=== PATIENT | female | born 1960 | race Caucasian/White ===

== ENCOUNTER → 2019-08-16 14:57 | Outpatient (BNVA) | payer SELFPAY | PROVIDERS: Family Provider Nurse Practitioner; PCP Nurse Practitioner; Visit Provider Nurse Practitioner | DX: R10.10 Upper abdominal pain, unspecified (principal) | CPT/HCPCS: 74018 ==

== ENCOUNTER 2022-05-21 06:00 | Outpatient (RCR) | payer OTHER, SELFPAY | END 2022-06-12 23:59 | disposition home or self-care (01) | LOC: APT 06:00 | PROVIDERS: Visit Provider Orthopaedic Surgery | DX: M17.11 Unilateral primary osteoarthritis, right knee (principal) | CPT/HCPCS: 97110; 97112; 97116; 97162; 97530 ==

== ENCOUNTER 2022-06-13 06:00 | Outpatient (RCR) | payer OTHER, SELFPAY | END 2022-07-12 23:59 | disposition home or self-care (01) | LOC: APT 06:00 | PROVIDERS: Visit Provider Orthopaedic Surgery | DX: Z47.89 Encounter for other orthopedic aftercare (principal); M17.11 Unilateral primary osteoarthritis, right knee | CPT/HCPCS: 97110; 97112; 97116; 97530 ==

== ENCOUNTER 2022-10-02 09:35 | Outpatient (CLI) | payer OTHER, MEDICAID, SELFPAY ==
--- NOTE | 2022-10-02 09:44 | MM_ITS ---
WS: [id number] BILATERAL SCREENING DIGITAL TOMOSYNTHESIS MAMMOGRAM WITH CAD HISTORY: SCREENING COMPARISON: 08/28/2021, 06/17/2012 Bilateral CC and MLO views with tomosynthesis and synthetic mammography submitted. Computer aided det ection analyzed. Breast composition: There are scattered areas of fibroglandular density. No suspicious masses, microc alcifications or architectural distortion. Subtle asymmetry in the upper outer quadrant RIGHT breast is stable. MM/[place] [id number] IMPRESSION: BI-RADS: 2-Benign FOLLOW UP: 1 Year Follow-up
== END 2022-10-02 09:36 | disposition home or self-care (01) ==
LOC: RAD 09:42 → MOBLMAM 09:43
PROVIDERS: PCP Registered Nurse; Visit Provider Registered Nurse
DX: Z12.31 Encounter for screening mammogram for malignant neoplasm of breast (principal)
CPT/HCPCS: 77063; 77067

== ENCOUNTER 2022-11-25 06:00 | Outpatient (RCR) | payer OTHER, MEDICAID, SELFPAY | END 2022-12-12 23:59 | disposition home or self-care (01) | LOC: APT 06:00 | PROVIDERS: Visit Provider Orthopaedic Surgery | DX: Z47.1 Aftercare following joint replacement surgery (principal); Z96.652 Presence of left artificial knee joint | CPT/HCPCS: 97110; 97161; 97530 ==

== ENCOUNTER 2022-12-13 06:00 | Outpatient (RCR) | payer MEDICAID, SELFPAY | END 2023-01-12 23:59 | disposition home or self-care (01) | LOC: APT 06:00 | PROVIDERS: Visit Provider Orthopaedic Surgery | DX: Z47.1 Aftercare following joint replacement surgery (principal); Z96.652 Presence of left artificial knee joint | CPT/HCPCS: 97110; 97140; 97530 ==

== ENCOUNTER 2023-01-24 00:20 | Emergency (ER) | payer MEDICAID, SELFPAY ==
--- NOTE | 2023-01-24 00:24 | ECG_ITS ---
[facility] Test Date: 2023-01-24 Pat Name: Alina Graham Department: Room: Gender: Female Mold Checker: : 1960 Requested By: Nick Joaquin Order Number: [id number] Kate MD: Claire Martínez M.D. Measurements Intervals [place] Rate: 101 P: 53 IL: 128 QRS: 59 QRSD: 95 T: 35 QT: 367 QTc: 476 Interpretive Statements SINUS TACHYCARDIA POSSIBLE RIGHT VENTRICULAR CONDUCTION DELAY [RSR (QR) IN V1/V2] ABNORMAL RHYTHM ECG No previous ECG available for comparison Electronically Signed On 01-25-2023 9:43:56 RRT by Claire Martínez M.D. [email or web address] municipal hospitalSeed Labs, Inc./store/NU/[id number] f
--- NOTE | 2023-01-24 00:26 | ECG_ITS ---
[facility] Test Date: 2023-01-24 Pat Name: Alina Graham Department: Room: Gender: Female Digester: : 1960 Requested By: Nick Joaquin Order Number: [id number] Kate MD: Claire Martínez M.D. Measurements Intervals [place] Rate: 99 P: 50 FL: 136 QRS: 59 QRSD: 91 T: 36 QT: 372 QTc: 477 Interpretive Statements SINUS RHYTHM Compared to ECG 01/24/2023 00:24:10 Sinus tachycardia no longer present Electronically Signed On 01-25-2023 9:43:53 ASPHALT PAVER by Claire Martínez M.D. [id number] f
[2023-01-24 00:34] VITALS: BP 147/88; PULSE 103; RESP 18; TEMP 37.3; O2SAT 96
--- NOTE | 2023-01-24 00:35 | XRR_ITS ---
PROCEDURE INFORMATION: Exam: XR Chest Exam date and time: 01/24/2023 12:40 AM Age: 62 years old Clinical indication: Pain; Shortness of breath; Chest pressure; Patient HX: C/O cp with SOB. TECHNIQUE: Imaging protocol: Radiologic exam of the chest. Views: 1 view. COMPARISON: CR XR abdomen 1V* [id number] 08/16/2019 2:57 PM FINDINGS: Lungs: Unremarkable. No consolidation. Pleural spaces: Unremarkable. No pleural effusion. No pneumothorax. Heart/Mediastinum: Unremarkable. No cardiomegaly. Bones/joints: Moderate thoracic spondylosis. Soft tissues: Examination is limited secondary to body habitus. XR/XR chest 1V portable [id number] IMPRESSION: No acute findings.
[2023-01-24 00:48] VITALS: BP 141/94; PULSE 92; RESP 14; O2SAT 95
[2023-01-24 00:51] LABS: Basophils % 0.3 %; Eosinophils # 0.2 10^3/uL (0.0-0.8); Eosinophils % 1.9 %; Hematocrit 35.6 % (36-47); Lymphocytes # 2.4 10^3/uL (0.8-4.8); Lymphocytes % 26.5 %; Mean Corpuscular HGB Conc 32.3 g/dL (30-55); Mean Corpuscular Hemoglobin 29.5 pg (27-33); Mean Corpuscular Volume 91.3 fl (85-98); Mean Platelet Volume 10.6 fL (7.4-10.4); Monocytes # 0.6 10^3/uL (0.2-0.9); Monocytes % 6.9 %; Neutrophils # 5.69 10^3/uL (1.8-7.7); Neutrophils % 64.2 %; Nucleated Red Blood Cells % 0 %; Platelet Count 249 10^3/cmm (157-399); Red Cell Distribution Width 13.1 % (12.1-15.1); White Blood Count 8.87 10^3/uL (3.29-11.43)
[2023-01-24 01:04] LABS: INR 0.97 (0.8-1.2)
[2023-01-24 01:11] LABS: Troponin(5th) Baseline < 6 ng/L (0-10)
[2023-01-24 01:18] LABS: Alanine Aminotransferase 18 U/L (0-33); Alkaline Phosphatase 127 U/L (35-105); Anion Gap 16.8 (5-19); Aspartate Amino Transferase 14 U/L (0-32); Blood Urea Nitrogen 9 mg/dL (8-23); Calcium 9.3 mg/dL (8.5-10.5); Carbon Dioxide 25 mmol/L (22-29); Chloride 101 mmol/L (98-107); Globulin 2.3 g/dL (1.3-4.6); Glomerular Filtration Rate 84.5 mL/min (90-130); Glucose 174 mg/dL (65-115); NT Pro B Type Natriuretic Pept 59 pg/mL (0-125); Osmolality Calculated 291 mOsm/kg (285-295); Potassium 3.8 mmol/L (3.5-5.1); Sodium 139 mmol/L (136-145); Total Bilirubin 0.2 mg/dL (0.15-1.2); Total Protein 6.3 g/dL (6.6-8.7)
[2023-01-24 01:25] LABS: Partial Thromboplastin Time 17.7 SECONDS (23.9-36.7)
[2023-01-24 01:29] LABS: D Dimer 1.28 ug/mLFEU (0-0.59)
[2023-01-24 01:40] LABS: Thyroid Stimulating Hormone 1.87 uIU/mL (0.27-4.20)
--- NOTE | 2023-01-24 01:41 | CTR_ITS ---
PROCEDURE INFORMATION: Exam: CTA Chest With Contrast Exam date and time: 01/24/2023 2:18 AM Age: 62 years old Clinical indication: Pain and abnormal findings; Abnormal diagnostic tests; Elevated d-dimer; Shortness of breath; Chest pressure; Prior surgery; Surgery date: 6+ months; Surgery type: Gb; Patient HX: Cp with SOB and tachycardia. Dimer of 1.28. ; Additional info: Palpitations, SOB tachycardia TECHNIQUE: Imaging protocol: Computed tomographic angiography of the chest with contrast. Exam focused on the arteries. 3D rendering (Not supervised by radiologist): MIP and/or 3D reconstructed images were created by the technologist. Radiation optimization: All CT scans at this facility use at least one of these dose optimization techniques: automated exposure control; mA and/or kV adjustment per patient size (includes targeted exams where dose is matched to clinical indication); or iterative reconstruction. Contrast material: OMNI 350; Contrast volume: 133 ml; Contrast route: INTRAVENOUS (IV); REPORTING DATA: Count of CT and Cardiac NM exams in prior 12 months: This patient has received 0 known CTs and 0 known cardiac nuclear medicine studies in the 12 months prior to the current study. COMPARISON: CR (CHEST, ) 01/24/2023 12:40 AM RADIATION DOSE METRICS: Total DLP (mGy-cm): 946.24 FINDINGS: Pulmonary arteries: No central or segmental pulmonary emboli. Evaluation of the more distal vessels is limited by motion artifact. Aorta: No aortic dissection allowing for pulsation artifact at the aortic root. No aortic aneurysm. Lungs: There are patchy ground-glass opacities noted in the lower lobes. Findings may be seen with mild pulmonary edema or atelectasis/air trapping. Patchy bibasilar atelectatic changes. Pleural spaces: Unremarkable. No pneumothorax. No pleural effusion. Heart: No pericardial effusion. Lymph nodes: Multiple prominent mediastinal lymph nodes measuring up to 12 mm in short axis dimension. There are calcified hilar lymph nodes. Liver: Fatty liver. Gallbladder and bile ducts: Status post cholecystectomy. Adrenal glands: Nonspecific ill-defined left adrenal gland thickening. Bones/joints: Unremarkable. No acute fracture. Soft tissues: Unremarkable. CT/CT angio chest PE protcl [id number] IMPRESSION: 1. No central or segmental pulmonary emboli. Evaluation of the more distal vessels is limited by motion artifact. 2. Multiple prominent mediastinal lymph nodes measuring up to 12 mm in short axis dimension. 3. There are patchy ground-glass opacities noted in the lower lobes. Findings may be seen with mild pulmonary edema or atelectasis/air trapping.
[2023-01-24] MEDS: metoprolol tartrate 1 mg/1 mL SDV 5 mL 2.5 MG IVP (02:01)
[2023-01-24 02:06] VITALS: BP 137/92; PULSE 89; RESP 19; O2SAT 98
[2023-01-24] MEDS: iohexol 350 mg/mL 500 mL Btl (per mL) IV (02:31)
[2023-01-24 02:36] LABS: SARS Covid-2 Antigen negative (Negative)
[2023-01-24 02:50] LABS: Troponin 5 2HR Delta 0.00001 ABS# (0-10)
[2023-01-24 03:10] VITALS: BP 117/64; PULSE 87; RESP 18; O2SAT 98
--- NOTE | 2023-01-24 03:15 | ED_ITS ---
HPI - Arrhythmia/Palpitations General: Chief Complaint: Arrhythmia/Palpitations Stated Complaint: CHEST PAIN Time Seen by Provider: 01/24/23 00:28 Source: patient History of Present Illness: 62-year-old female with no prior history of coronary disease. She notes that she began to get discomfort between her shoulder blades, and a feeling of heart racing while driving home from [place] from a baby shower. She says the feeling is improved now, but is still present. She was not sick prior to this. No cough, no fever, no significant GI symptoms, some mild shortness of breath. MD complaint: rapid heart beat Associated symptoms: Deny nausea Review of Systems Const: Denies: fever(s) Eyes: Denies: change in vision ENMT: Denies: throat pain Card: Reports: chest pain (Discomfort) and palpitations; Denies: irregular heart rhythm Resp: Reports: dyspnea; Denies: productive cough or non-productive cough GI: Denies: nausea Neuro: Denies: headache(s) PFSH ED PFSH: Medical History Neuropathic arthritis Right knee Palpitations Type 2 diabetes mellitus with hyperglycemia Surgical History History of cholecystectomy History of hernia repair History of hysterectomy Family History Other Cancer Chronic kidney disease (CKD) Social History Smoking and tobacco/nicotine status: former use of tobacco/nicotine Second hand smoke exposure: No Alcohol intake: never Substance/Drug Use: never Caregiver/support person: No Lives independently: Yes Household members: spouse Housing: House Marital status: Number of children: 3 Do you think of yourself as: Straight/Heterosexual Current gender identity: Female Physical Exam Const: COMMON NORMALS: no acute distress GENERAL APPEARANCE: cooperative; not ill appearing and not frail appearing HENMT: COMMON NORMALS: normocephalic, atraumatic and Normal external nose present HEAD & SCALP: normocephalic and atraumatic FACE & SINUS: normal facial exam and face symmetric NOSE: Normal external nose present Eye: COMMON NORMALS: Equal, round and reactive pupils present and EOMs intact bilaterally PUPIL: Yes Equal, round and reactive pupils present Neck/C-Spine: GENERAL: Yes trachea midline Chest: CHEST: Yes Symmetrical chest wall rise Resp: COMMON NORMALS: normal respiratory effort, No retractions, No use of accessory muscles and clear to auscultation bilaterally AUSCULTATION: clear to auscultation bilaterally Cardio: COMMON NORMALS: regular rate and regular rhythm RATE: regular rate RHYTHM: regular rhythm GI: COMMON NORMALS: Normal to inspection, nondistended, normoactive bowel sounds present Extremity: COMMON NORMALS: no pedal edema Neuro: PRINCE COMA SCALE: document GCS findings [place] coma scale eye opening: Spontaneous Prince coma scale verbal response: Orientated Prince coma scale motor response: Obey commands Prince coma scale total score: 15 SENS ORY EXAM: Yes extremities (intact) Psych: COMMON NORMALS: speech normal SPEECH: Yes normal speech Skin: COMMON NORMALS: no rashes or lesions noted GENERAL SKIN EXAM: no rashes or lesions noted Course Vital Signs: Vital signs: Vital Signs Temperature 99.2 F 01/24/23 00:34 Pulse Rate 87 01/24/23 03:10 Respiratory Rate 18 01/24/23 03:10 Blood Pressure 117/64 01/24/23 03:10 Pulse Oximetry 98 01/24/23 03:10 Oxygen Delivery Me thod Room Air 01/24/23 03:10 MDM - Arrhythmia/Palpitations Medical Decision Making Patient was initially tachycardic. Improved after IV metoprolol. Currently heart rate is 84, blood pressure 110/79. Saturations are normal. First and second troponin are normal. EKG shows a normal sinus rhythm with a rate of 100 or just below with normal intervals and ST waves. There is an S in lead I and Q in lead III. Because of the tachycardia, D-dimer was ordered and is positive. CTA is finished and read is pending. CTA shows no central PE. There are some groundglass infiltrates in the bottom of both lower lobes. Her antigen COVID test is negative. We will swab her for PCR respiratory panel. She will be allowed home. To return for any worsening symptoms. Lab Data 01/24/23 00:44 01/24/23 00:44 Radiology Impressions Chest X-Ray 01/24/23 00:35 IMPRESSION: No acute findings. Chest CTA 01/24/23 01:41 IMPRESSION: 1. No central or segmental pulmonary emboli. Evaluation of the more distal vessels is limited by motion artifact. 2. Multiple prominent mediastinal lymph nodes measuring up to 12 mm in short axis dimension. 3. There are patchy ground-glass opacities noted in the lower lobes. Findings may be seen with mild pulmonary edema or atelectasis/air trapping. Laboratory Results WBC 8.87 10^3/uL (3.29-11.43) 01/24/23 00:44 RBC 3.90 10^6/uL (3.85-5.65) 01/24/23 00:44 Hgb 11.50 g/dL (11.27-16.99) 01/24/23 00:44 Hct 35.6 % (36-47) L 01/24/23 00:44 MCV 91.3 fl (85-98) 01/24/23 00:44 MCH 29.5 pg (27-33) 01/24/23 00:44 MCHC 32.3 g/dL (30-55) 01/24/23 00:44 RDW 13.1 % (12.1-15.1) 01/24/23 00:44 Plt Count 249 10^3/cmm (157-399) 01/24/23 00:44 MPV 10.6 fL (7.4-10.4) H 01/24/23 00:44 Neut % (Auto) 64.2 % 01/24/23 00:44 Lymph % (Auto) 26.5 % 01/24/23 00:44 Duc[place]ne % (Auto) 6.9 % 01/24/23 00:44 Eos % (Auto) 1.9 % 01/24/23 00:44 Baso % (Auto) 0.3 % 01/24/23 00:44 Neut # (Auto) 5.69 10^3/uL (1.8-7.7) 01/24/23 00:44 Lymph # (Auto) 2.4 10^3/uL (0.8-4.8) 01/24/23 00:44 Duc[place]ne # (Auto) 0.6 10^3/uL (0.2-0.9) 01/24/23 00:44 Eos # (Auto) 0.2 10^3/uL (0.0-0.8) 01/24/23 00:44 Baso # (Auto) 0.0 10^3/uL (0.0-0.1) 01/24/23 00:44 Nucleated RBC % (auto) 0 % 01/24/23 00:44 Nucleated RBCs # 0.0 /100WBC 01/24/23 00:44 PT 13.20 SECONDS (12.1-14.9) 11 00:44 INR 0.97 (0.8-1.2) 01/24/23 00:44 APTT 17.7 SECONDS (23.9-36.7) L 01/24/23 00:44 D-Dimer 1.28 ug/mLFEU (0-0.59) H 01/24/23 00:41 Sodium 139 mmol/L (136-145) 01/24/23 00:44 Potassium 3.8 mmol/L (3.5-5.1) 01/24/23 00:44 Chloride 101 mmol/L (98-107) 01/24/23 00:44 Carbon Dioxide 25 mmol/L (22-29) 01/24/23 00:44 Anion Gap 16.8 (5-19) 01/24/23 00:44 BUN 9 mg/dL (8-23) 01/24/23 00:44 Creatinine 0.7 mg/dL (0.5-0.9) 01/24/23 00:44 GFR Calculation 84.5 mL/min (90-130) L 01/24/23 00:44 Glucose 174 mg/dL (65-115) H 01/24/23 00:44 Calculated Osmolality 291 mOsm/kg (285-295) 01/24/23 00:44 Calcium 9.3 mg/dL (8.5-10.5) 01/24/23 00:44 Total Bilirubin 0.2 mg/dL (0.15-1.2) 01/24/23 00:44 AST 14 U/L (0-32) 01/24/23 00:44 ALT 18 U/L (0-33) 01/24/23 00:44 Alkaline Phosphatase 127 U/L (35-105) H 11 00:44 Troponin T Baseline < 6 ng/L (0-10) 01/24/23 00:44 Troponin T 120 Minute 6.00 ng/L (0-10) 01/24/23 02:06 Delta Troponin T 0.57815 ABS# (0-10) 01/24/23 02:06 NT-Pro-B Natriuret Pep 59 pg/mL (0-125) 01/24/23 00:44 Total Protein 6.3 g/dL (6.6-8.7) L 01/24/23 00:44 Albumin 4.0 g/dL (3.5-5.2) 01/24/23 00:44 Globulin 2.3 g/dL (1.3-4.6) 01/24/23 00:44 TSH 1.87 uIU/mL (0.27-4.20) 01/24/23 00:41 SARS-CoV-2 Ag (Rapid) negative (Negative) 01/24/23 02:06 All radiology interpretation(s) finalized by discharge Discharge Plan Discharge Patient Disposition: Home Clinical Impression: Sinus tachycardia, Palpitations, Viral pneumonitis Prescriptions: No Action gabapentin 300 mg capsule 300 mg PO BID metformin 500 mg tablet 500 mg PO BID metoprolol tartrate 100 mg tablet 100 mg PO BID pravastatin 20 mg tablet 20 mg PO .hs nortriptyline 25 mg capsule 25 mg PO BID aspirin 81 mg tablet,delayed release (DR/EC) 81 mg PO DAILY (DME) diabetic shoes with 3 inserts See Rx Instructions .Route .MEDSUPPLY Qty: 1 0RF Rx Instructions: As directed to the Shoe Doug fluconazole [Diflucan] 150 mg tablet 150 mg PO Q3D Qty: 2 0RF Rx Instructions: may repeat second dose 72 hrs after first dose if symptoms persist Discharge Orders: Discharge ED (Routine); Ordered 01/24/23 Ordered By: Nick Ye Referrals: Sarita Sinclair [Primary Care Provider] - 1-3 days Patient Instructions: Heart Palpitations (ED), Pneumonitis (ED), Opioid Safety, Pain Management Activity Restrictions/Additional Instructions: Return for worsening chest discomfort, racing heart, shortness of breath, etc. Keep an eye on your temperature the next 48 hours. Treat accordingly. Call for the results of your PCR swab later today. If your COVID test is positive, call your doctor on Wednesday and let them know, as you may be able to take antivirals. Coding Level of Care Code ED Regulatory Submissions Associate for Jamil Barreto
[2023-01-24 04:08] VITALS: BP 136/75; PULSE 83; RESP 16; O2SAT 98
[2023-01-24 06:06] LABS: Adenovirus Not Detected (NOT DETECT); Chlamydia Pneumoniae Not Detected (NOT DETECT); Coronavirus 229E,HKU1,NL63,OC4 Not Detected (NOT DETECT); Human Metapneumovirus Not Detected (NOT DETECT); Human Rhinovirus/Enterovirus Not Detected (NOT DETECT); Influenza A Not Detected (NOT DETECT); Influenza A H1 Not Detected (NOT DETECT); Influenza A H1-2009 Not Detected (NOT DETECT); Influenza A H3 Not Detected (NOT DETECT); Influenza B Not Detected (NOT DETECT); Mycoplasma Pneumoniae Not Detected (NOT DETECT); Parainfluenza Virus Type 1 Not Detected (NOT DETECT); Parainfluenza Virus Type 2 Not Detected (NOT DETECT); Parainfluenza Virus Type 3 Not Detected (NOT DETECT); Parainfluenza Virus Type 4 Not Detected (NOT DETECT); Respiratory Syncytial Virus A Not Detected (NOT DETECT); Respiratory Syncytial Virus B Not Detected (NOT DETECT); SARS-COV-2 Not Detected (NOT DETECT)
== END 2023-01-24 04:05 | disposition home or self-care (01) ==
PROVIDERS: Emergency Provider Emergency Medicine; PCP Registered Nurse
DX: R00.0 Tachycardia, unspecified (principal); J98.4 Other disorders of lung; R00.2 Palpitations; Z79.82 Long term (current) use of aspirin; Z79.84 Long term (current) use of oral hypoglycemic drugs; Z11.52 Encounter for screening for COVID-19; Z87.891 Personal history of nicotine dependence; E11.9 Type 2 diabetes mellitus without complications
CPT/HCPCS: 71045; 71275; 80053; 83880; 84443; 84484; 85025; 85378; 85610; 85730; 87426; 87486; 87581; 87633; 93005; 96374; 99285; J3490; Q9967

== ENCOUNTER 2023-03-17 06:45 | Day surgery (SDC) | payer MEDICAID, SELFPAY ==
[2023-03-17] VITALS (7 sets, daily range): BP systolic 98–138; BP diastolic 61–86; PULSE 68–80; RESP 16–18; TEMP 36.1–36.4; O2SAT 91–96; BMI 37.8
[2023-03-17] MEDS: sodium chloride 0.9% 1,000 ML 30 ML IV (07:10)
[2023-03-17] MEDS: acetaminophen 1,000 MG/100 ML PIGGYBACK 400 MG IV (07:11)
[2023-03-17 07:29] LABS: Glucose Point of Care 149 mg/dL (70-110)
[2023-03-17] MEDS: vancomycin 1,000 MG in sodium chloride 0.9% 250 ML 250 MG IV (07:37)
[2023-03-17 08:03] LABS: Anion Gap 15.2 (5-19); Blood Urea Nitrogen 12 mg/dL (8-23); Calcium 9.5 mg/dL (8.5-10.5); Carbon Dioxide 25 mmol/L (22-29); Chloride 104 mmol/L (98-107); Glucose 159 mg/dL (65-115); Osmolality Calculated 293 mOsm/kg (285-295); Potassium 4.2 mmol/L (3.5-5.1); Sodium 140 mmol/L (136-145)
--- NOTE | 2023-03-17 08:43 | W.PM.OPSUD ---
Surgery/Procedure H&P Update DATE OF PROCEDURE: March 17, 2023 DATE H&P PERFORMED: 02/16/23 H&P UPDATE INFORMATION: I have reviewed H&P completed within last 30 days, I have examined patient prior to procedure, No changes to prior documentation and H&P is in [facility] EMR on date indicated PREOP DIAGNOSIS: Soft tissue mass right ankle PLANNED PROCEDURE: Operation Date: 03/17/23 08:30 Proposed Procedures p Excision soft tissue mass right ankle 80595,D17.9(Right) - Karson Gee DPM
[2023-03-17] MEDS: BUPivacaine 0.5% INJ 30 mL INJECTION (09:20)
--- NOTE | 2023-03-17 09:37 | W.PM.BPON ---
Date of procedure: 03/17/2023 Surgeon name: Dr. Karson Gee D.P.M. Bill Poster Installer(s) name(s): [place] Procedure(s) performed: Right ankle soft tissue mass excision Description of findings: Lipomatous soft tissue mass right ankle, benign in appearance Estimated blood loss: 5 cc Tourniquet time: 18 minutes Specimen(s) removed: Soft tissue mass right ankle Post-operative diagnosis: Right ankle soft tissue mass
--- NOTE | 2023-03-17 09:38 | P.OP_ITS ---
Operative Report Date of procedure: March 17, 2023 Pre-op diagnosis: Soft tissue mass right ankle Post-op diagnosis: Same Post-op findings: Lipomatous soft tissue mass right ankle extending into the sinus tarsi subfascial. Appeared benign in appearance Procedure done: Excision soft tissue mass right ankle greater than 1.5 cm subfascial CPT 35604 Implants: None Pathology: Right ankle soft tissue mass send the surgical specimen Surgeon: Karson Gee DPM Credit Representative: [place], Estimated blood loss: 5 cc 18 minutes Complications: None Findings: See above Procedure: Patient is a 62-year-old female that has a history of right ankle soft tissue mass. The patient has had the aforementioned chief complaint for some time. Cons ervative treatment measures have been attempted and the patient has opted for surgical intervention at this time. A lengthy discussion regarding the procedure, including risks and complications has been had with the patient and is noted in the recent clinic note. Written and verbal consent have been obtained. All patient questions have been answered to the patient?s satisfaction. No written or verbal guarantees have been given or implied. The patient has been NPO since midnight. The history has been reviewed and the history and physical is current. The signed consent was confirmed and placed in the patient chart. Patient imaging has been reviewed and is consistent with the diagnosis. Under mild sedation, the patient was brought into the operating room and left on the gurney in the supine position. IV antibiotics were given by the anesthesia team as preoperative surgical prophylaxis. IV sedation was then performed by the anesthesiateam. A local field block was then performed using 0 .5% Marcaine plain. A pneumatic tourniquet was then placed about the right ankle. The operative extremity was then prepped and draped in the usual fashion. The extremity was then elevated and exsanguinated before the tourniquet was inflated to 250 mmHg. After inflation, the following procedure was then performed. Attention was directed to the lateral aspect of the right ankle where a 4.5 cm incision was made directly over the sinus tarsi using a #15 blade. Dissection was carried down through subcutaneous and superficial fascia. The soft tissue mass was exposed and was noted to be yellow in coloration and lipomatous in nature. The soft tissue mass extended into the deep fascia of the sinus tarsi. Careful blunt dissection was carried out circumferentially around the soft tissue mass. It was then completely dissected free from the region of the sinus tarsi. Is passed from the operative field based on the surgical specimen. It was well-defined and benign in appearance. Had the consistency of a lipoma. The site was examined and no residual soft tissue mass was visualized. The site was then irrigated with copious amounts of sterile saline before attention was directed to closure. Deep tissue was closed with 3-0 Vicryl followed by subcuticular closure with 4-0 Vicryl and skin closed with 4-0 nylon in horizontal mattress fashion. The tourniquet was let down good hyperemic response was noted all digits of the right foot. The incision site was dressed with Xeroform, 4 x 4 gauze, Kerlix, Coban. Patient was placed in a postoperative shoe. The patient tolerated the procedure and anesthesia well and without complication. The patient was transported from the operating room to the recovery room with vital signs stable and vascular status intact to all digits of the right foot. The patient was given both written and verbal instructions to remain weightbearing as tolerated to the operative extremity, to keep dressings/splint clean, dry and intact and to take pain medication as directed. The patient will follow-up in the outpatient setting at their scheduled appointment. The patient was discharged with my personal number and was instructed to call if any questions or issues should arise. They were discharged home once anesthesia criteria was met.
[2023-03-17] MEDS: HYDROcodone-acetaminophen 5-325 mg Tablet 1 TAB PO (10:22)
--- NOTE | 2023-03-17 10:56 | P.ANESASSM_ITS ---
Pre-Anesthetic Assessment Height/Weight: Height 1.55 m Weight 90.718 kg Temp Pulse Resp BP Pulse Ox O2 Del Method O2 Flow Rate 97.1 F L 69 18 106/67 93 Room Air 6 03/17/23 09:50 03/17/23 10:23 03/17/23 10:23 03/17/23 10:23 03/17/23 10:23 03/17/23 10:23 03/17/23 09:29 Preop Diagnosis: Soft tissue mass right ankle Operation Date: 03/17/23 08:30 Proposed Procedures p Excision soft tissue mass right ankle 28382,D17.9(Right) - Karson Gee DPM Familial anesthetic complications: none Was Beta Andres taken within 24 hours: Yes Was Clonidine taken within 24 hours: N/A Last intake: Intake Last Liquid Date 03/16/23 Last Liquid Time 21:30 Last Solid Date 03/16/23 Last Solid Time 21:00 Social No alcohol and No tobacco Exam alert, oriented x 3, clear to auscultation bilaterally and regular rate & rhythm Airway Submandibular: within normal limits Cervical ROM: within normal limits Mallampati: Class II CV/HEM Hypertension GI Gastroesophageal Reflux Disease Metabolic Diabetes Mellitus, Hyperlipidemia and Morbid Obesity Neuropsych Neuropathy Anesthetic Plan ASA status: 3 Anesthesia: Choice Medications/Allergies Home Medications Medication Instructions Recorded Confirmed Last Taken Type gabapentin 300 mg capsule 300 mg PO BID 08/15/19 03/17/23 03/17/23 History metformin 500 mg tablet 500 mg PO BID 08/15/19 03/17/23 03/16/23 History metoprolol tartrate 100 mg tablet 100 mg PO BID 08/15/19 03/17/23 03/17/23 History pravastatin 20 mg tablet 20 mg PO .hs 08/15/19 03/17/23 03/16/23 History aspirin 81 mg tablet,delayed 81 mg PO DAILY 08/16/19 03/17/23 03/15/23 History release nortriptyline 25 mg capsule 25 mg PO BID 08/16/19 03/17/23 03/16/23 History diabetic shoes with 3 inserts #1 ea 01/21/23 03/17/23 Unknown Rx famotidine 10 mg tablet (Acid 10 mg PO DAILY 03/16/23 03/17/23 03/17/23 History Controller) lisinopril 20 mg tablet 20 mg PO BID 03/16/23 03/17/23 03/16/23 History hydrocodone 5 mg-acetaminophen 325 1 tab PO Q6H PRN pain #16 tabs 03/17/23 Unknown Rx mg tablet Allergies Allergy/AdvReac Type Severity Reaction Status Date / Time atorvastatin [From Lipitor] Allergy Unknown Unknown Verified 03/17/23 07:02 cephalexin [From Keflex] Allergy Unknown Unknown Verified 03/17/23 07:02 Penicillins Allergy Unknown Unknown Verified 03/17/23 07:02 sufla Allergy Unknown Unknown Uncoded 03/17/23 07:02 [facility] Anesthesia Medical History Neuropathic arthritis Right knee Type 2 diabetes mellitus with hyperglycemia Palpitations Surgical History History of hernia repair History of hysterectomy History of cholecystectomy Family History Other Cancer Chronic kidney disease (CKD) Social History Smoking and tobacco/nicotine status: former use of tobacco/nicotine Second hand smoke exposure: No Alcohol intake: never Substance/Drug Use: never Caregiver/support person: No Lives independently: Yes Household members: spouse Housing: House Marital status: Number of children: 3 Do you think of yourself as: Straight/Heterosexual Current gender identity: Female Data Anesthesia 03/17/23 07:26 BMP 03/17/23 07:26 Sodium 140 Potassium 4.2 Chloride 104 Carbon Dioxide 25 BUN 12 Creatinine 0.6 Glucose 159 H Calcium 9.5 Cardiac Studies: 2 No Data to Display
--- NOTE | 2023-03-17 16:23 | ANE.PACU2 ---
Inpatient post-anesthesia follow up: Airway intact: Yes Vital signs: Temperature 97.1 F Pulse Rate 69 Respiratory Rate 18 Blood Pressure 106/67 Pulse Oximetry 93 Oxygen Delivery Me thod Room Air Oxygen Flow Rate 6 Fraction of Inspir ed Oxygen Hydration adequate: Yes Nausea and vomiting: No Pain level: 1 Mental status: Baseline
== END 2023-03-17 10:33 | disposition home or self-care (01) ==
PROVIDERS: Anesthesiology; PCP Registered Nurse; Visit Provider Podiatrist Foot & Ankle Surgery
PROC: (CPT 28041; principal; 2023-03-17 08:20)
DX: D17.79 Benign lipomatous neoplasm of other sites (principal); I10 Essential (primary) hypertension; K21.9 Gastro-esophageal reflux disease without esophagitis; E78.5 Hyperlipidemia, unspecified; E66.01 Morbid (severe) obesity due to excess calories; Z68.37 Body mass index [BMI] 37.0-37.9, adult; E11.40 Type 2 diabetes mellitus with diabetic neuropathy, unspecified; Z79.82 Long term (current) use of aspirin; E11.65 Type 2 diabetes mellitus with hyperglycemia; Z87.891 Personal history of nicotine dependence
CPT/HCPCS: 28041; 36415; 36416; 80048; 82962; 88307; J0131; J2704; J3010; J3370; J3490; J7030; J7050

== ENCOUNTER → 2023-04-07 13:41 | Outpatient (BNVA) | payer MEDICAID, SELFPAY | PROVIDERS: PCP Registered Nurse; Visit Provider Nurse Practitioner Family | DX: M25.562 Pain in left knee (principal); Z96.659 Presence of unspecified artificial knee joint | CPT/HCPCS: 73562 ==

== ENCOUNTER 2024-01-25 10:02 | Outpatient (CLI) | payer MEDICAID, SELFPAY ==
--- NOTE | 2024-01-25 10:00 | MM_ITS ---
WS: [id number] BILATERAL 3D TOMOSYNTHESIS DIGITAL SCREENING MAMMOGRAPHY WITH CAD CLINICAL INFORMATION: SCREENING HISTORY: Screening mammogram. No current complaints. COMPARISON: 2022 TECHNIQUE: Bilateral CC and MLO views. FINDINGS: Scattered fibroglandular densities bilaterally. No suspicious focal mass, asymmetry, calcifications, or architectural distortion. No evidence of malignancy. A few incidental punctate calcifications. Efra ent centered calcification LEFT breast. Vascular calcification. MM/MM scr BI tomosynthesis [id number] IMPRESSION: DENSITY: There are scattered areas of fibroglandular density. BI-RADS: 2 - Benign. FOLLOW UP: 1 Year Follow-up Recommend return to annual screening mammography.
== END 2024-01-25 10:03 | disposition home or self-care (01) ==
LOC: MOBLMAM 10:04
PROVIDERS: PCP Nurse Practitioner Family; Visit Provider Nurse Practitioner Family
DX: Z12.31 Encounter for screening mammogram for malignant neoplasm of breast (principal); R92.323 Mammographic fibroglandular density, bilateral breasts; R92.1 Mammographic calcification found on diagnostic imaging of breast
CPT/HCPCS: 77063; 77067

== ENCOUNTER → 2024-04-21 14:38 | Outpatient (BNVA) | payer MEDICAID, SELFPAY | PROVIDERS: PCP Nurse Practitioner Family; Visit Provider Clinical Nurse Specialist Adult Health | DX: N39.0 Urinary tract infection, site not specified (principal); B34.9 Viral infection, unspecified | CPT/HCPCS: 81000; 87400; 87426 ==

== ENCOUNTER 2025-02-20 10:08 | Outpatient (CLI) | payer MEDICARE, SELFPAY ==
--- NOTE | 2025-02-20 10:20 | MM_ITS ---
WS: [id number] BILATERAL 3D TOMOSYNTHESIS DIGITAL SCREENING MAMMOGRAPHY WITH CAD CLINICAL INFORMATION: SCREENING HISTORY: Screening mammogram. No current complaints. COMPARISON: 2023 TECHNIQUE: Bilateral CC and MLO views. FINDINGS: Scattered fibroglandular densities bilaterally. No suspicious focal mass, asymmetry, calcifications, or architectural distortion. No evidence of malignancy. Lucent centered calcifications. Vascular calcification. MM/MM scr tomosynthesis [id number] IMPRESSION: DENSITY: There are scattered areas of fibroglandular density. BI-RADS: 2 - Benign. FOLLOW UP: 1 Year Follow-up Recommend return to annual screening mammography.
== END 2025-02-20 10:09 | disposition home or self-care (01) ==
LOC: MOBLMAM 10:20
PROVIDERS: PCP Family Medicine; Visit Provider Family Medicine
DX: Z12.31 Encounter for screening mammogram for malignant neoplasm of breast (principal); R92.323 Mammographic fibroglandular density, bilateral breasts; R92.1 Mammographic calcification found on diagnostic imaging of breast
CPT/HCPCS: 77063; 77067